=== PATIENT | male | born 1995 | race Caucasian/White ===

== ENCOUNTER 2018-07-23 14:08 | Outpatient (CLI) | payer MEDICAID ==
[2018-07-23 19:31] LABS: RHEUMATOID FACTOR NEGATIVE (Negative)
[2018-07-26 13:51] LABS: ANA SCREEN NEGATIVE (NEGATIVE)
== END 2018-07-23 23:59 | disposition home or self-care (01) ==
LOC: LAB.N 14:08
PROVIDERS: ATTEND Nurse Practitioner Gerontology
DX: M35.9 Systemic involvement of connective tissue, unspecified (principal); G89.29 Other chronic pain
CPT/HCPCS: 36415; 85651; 86038; 86140; 86430